=== PATIENT | female | born 1980 | race Caucasian/White ===

== ENCOUNTER 2020-08-02 10:55 | Observation (INO) | payer OTHER ==
[~2020-08-02] VITALS: Ht 165.1 cm; Wt 87.1 kg
[~2020-08-02 10:55] MED LIST: NOCURR; PREN1TAB52 PO
[2020-08-02] MEDS: RINGERS SOLUTION,LACTATED 1,000 ML IV SCH ×2 (11:31→18:56)
[2020-08-02 11:40] LABS: BASOPHILS % (AUTO) 0.3 % (0.0-2.0); EOSINOPHILS % (AUTO) 4.3 % (1.0-6.0); HEMATOCRIT 33.5 % (36-46); HEMOGLOBIN 11.1 g/dL (12.0-16.0); LYMPHOCYTES # (AUTO) 1.5 K/uL (1.0-4.8); LYMPHOCYTES % (AUTO) 19.6 % (22.0-44.0); MEAN CORPUSCULAR HEMOGLOBIN 29.3 pg (26.0-34.0); MEAN CORPUSCULAR HGB CONC 33.2 G/dL (31.0-37.0); MEAN CORPUSCULAR VOLUME 88 fL (80-100); MONOCYTES # (AUTO) 0.7 K/uL (0.1-1.0); MONOCYTES % (AUTO) 8.8 % (2.0-9.0); NEUTROPHILS # (AUTO) 5.1 K/uL (1.8-7.7); PLATELET COUNT (AUTO)-OB 173 K/uL (150-450); RED CELL DISTRIBUTION WIDTH 14.9 % (11.5-14.5)
[2020-08-02 11:59] VITALS: BP 110/57
[2020-08-02] MEDS ORDERED: PREN1TAB80 PO (12:01)
[2020-08-02] MEDS ORDERED: FERR236T3 PO (12:02)
[2020-08-02] MEDS: BETAMETHASONE SOLUSPAN 6 MG/ML 5 ML VIAL IM SCH (12:49)
[2020-08-02] MEDS ORDERED: IRON SUCROSE COMPLEX 200 MG in SODIUM CHLORIDE 0.9% 100 ML IV ONE (14:00)
[2020-08-02 20:28] VITALS: BP 129/61
[2020-08-02 21:31] LABS: COVID AG,FIA SOURCE NASOPHARYNGEAL
[2020-08-03] MEDS: BETAMETHASONE SOLUSPAN 6 MG/ML 5 ML VIAL IM SCH (00:24)
[2020-08-03] MEDS: RINGERS SOLUTION,LACTATED 1,000 ML IV SCH (04:13)
== END 2020-08-03 10:50 | disposition home or self-care (01) ==
LOC: 4S 10:55
PROVIDERS: ADMIT Obstetrics & Gynecology Obstetrics; ATTEND Obstetrics & Gynecology Obstetrics
DX: O44.03 Complete placenta previa NOS or without hemorrhage, third trimester (principal); Z20.822 Contact with and (suspected) exposure to COVID-19; Z3A.35 35 weeks gestation of pregnancy
CPT/HCPCS: 36415; 59025; 76805; 85025; 87426; 96361 ×2; 96372 ×2; 96374; 99219 ×2; J0702 ×2; J1756; J7050; J7120 ×2; 96360; 96376